=== PATIENT | male | born 1995 | race Caucasian/White ===

== ENCOUNTER 2017-02-23 17:24 | Emergency (ER) | payer SELFPAY ==
[~2017-02-23] VITALS: Ht 182.9 cm; Wt 70.9 kg
[~2017-02-23 17:24] MED LIST: AMOXICILLIN 50500 MG PO; CLEOCIN HCL300 MG PO; GENTAMICIN EYE D5 ML OD; NO HOME MEDICATIONS; ULTRAM 50MG TAB50 MG PO
[2017-02-23 17:29] VITALS: TEMP 97.9
[2017-02-23 18:25] VITALS: BP 108/61; PULSE 86
== END 2017-02-23 18:25 | disposition home or self-care (01) ==
LOC: COL.ER 17:24
DX: S93.402A Sprain of unspecified ligament of left ankle, initial encounter (principal); F90.9 Attention-deficit hyperactivity disorder, unspecified type; F17.210 Nicotine dependence, cigarettes, uncomplicated; W17.89XA Other fall from one level to another, initial encounter; X50.1XXA Overexertion from prolonged static or awkward postures, initial encounter; Y92.219 Unspecified school as the place of occurrence of the external cause

== ENCOUNTER 2021-12-13 16:07 | Emergency (ER) | payer SELFPAY ==
[~2021-12-13] VITALS: Ht 180.3 cm; Wt 77.4 kg
[2021-12-13 16:40] VITALS: TEMP 98.7
[2021-12-13 17:55] VITALS: BP 128/71; PULSE 80
== END 2021-12-13 18:00 | disposition home or self-care (01) ==
LOC: COL.ER 16:07
DX: M25.532 Pain in left wrist (principal)

== ENCOUNTER 2022-02-19 01:09 | Emergency (ER) | payer SELFPAY ==
[~2022-02-19] VITALS: Ht 180.3 cm; Wt 75.9 kg
[2022-02-19 01:31] VITALS: BP 112/68; TEMP 98.1
[2022-02-19 02:06] LABS: STREP SCREEN NEGATIVE
[2022-02-19 02:49] VITALS: PULSE 94
== END 2022-02-19 02:50 | disposition home or self-care (01) ==
LOC: COL.ER 01:09
PROVIDERS: Emergency Medicine
DX: B34.9 Viral infection, unspecified (principal); F17.210 Nicotine dependence, cigarettes, uncomplicated; Z20.822 Contact with and (suspected) exposure to COVID-19

== ENCOUNTER 2022-03-12 06:23 | Emergency (ER) | payer SELFPAY ==
[~2022-03-12] VITALS: Ht 180.3 cm; Wt 75.0 kg
[2022-03-12 06:38] VITALS: TEMP 98.2
[2022-03-12] MEDS ORDERED: AMOXICILLIN 8751 TAB PO (08:17)
[2022-03-12 08:31] VITALS: BP 106/66; PULSE 74
== END 2022-03-12 08:31 | disposition home or self-care (01) ==
LOC: COL.ER 06:23
DX: S02.32XA Fracture of orbital floor, left side, initial encounter for closed fracture (principal); S02.832A Fracture of medial orbital wall, left side, initial encounter for closed fracture; F17.200 Nicotine dependence, unspecified, uncomplicated; Z28.311 Partially vaccinated for COVID-19; W22.8XXA Striking against or struck by other objects, initial encounter